=== PATIENT | male | born 1975 | race Caucasian/White ===

== ENCOUNTER 2018-01-28 20:11 | Emergency (ER) | payer OTHER ==
[~2018-01-28] VITALS: Ht 198.1 cm; Wt 133.5 kg
[~2018-01-28 20:11] MED LIST: HYDROXYZINE PAM50 MG PO; SUBOXONE 8 MG-1 EAC2 SL
[2018-01-28 23:15] LABS: CHLORIDE 103 mEq/L (99-109); POTASSIUM 3.9 mEq/L (3.7-5.4); SODIUM 140 mEq/L (136-147)
[2018-01-28 23:16] LABS: GLUCOSE 90 mg/dL (70-99)
[2018-01-28 23:17] LABS: HEMATOCRIT 48.7 % (38.0-50.0); HEMOGLOBIN 16.9 G/DL (12.5-16.6); MCH 32.1 PG (29.0-34.0); MCHC 34.7 G/DL (30.0-36.0); MCV 92.4 FL (86-99); PLATELET COUNT 266 K/uL (156-360); RBC DIS.WIDTH-CV 12.8 % (11.8-14.6); RBC DIS.WIDTH-SD 43.4 % (39-53); RED BLOOD COUNT 5.27 M/uL (4.00-5.50); WHITE BLOOD COUNT 15.1 K/uL (4.1-10.2)
[2018-01-28 23:20] LABS: CREATININE 1.4 mg/dL (0.6-1.3); GFR ESTIMATE (CALCULATED) > 59 mL/min/ (58.99-99999)
[2018-01-28 23:21] LABS: UREA NITROGEN (BUN) 20 mg/dL (9-23)
[2018-01-28] MEDS ORDERED: BACTRIM,SEPT1 TABLET PO (23:24)
[2018-01-28] MEDS ORDERED: KEFLEX500 MG PO (23:24)
[2018-01-28 23:46] VITALS: BP 120/80
== END 2018-01-28 23:48 | disposition home or self-care (01) ==
LOC: EME 20:11
PROVIDERS: Physician Assistant
DX: L03.113 Cellulitis of right upper limb (principal); S61.401A Unspecified open wound of right hand, initial encounter; F19.90 Other psychoactive substance use, unspecified, uncomplicated; X58.XXXA Exposure to other specified factors, initial encounter; F32.9 Major depressive disorder, single episode, unspecified; F17.200 Nicotine dependence, unspecified, uncomplicated
CPT/HCPCS: 73130; 80048; 85027; 99281; 99284

== ENCOUNTER 2018-02-19 12:26 | Emergency (ER) | payer OTHER ==
[~2018-02-19] VITALS: Ht 198.1 cm; Wt 133.4 kg
[~2018-02-19 12:26] MED LIST changes: +BACTRIM,SEPT1 TABLET PO; +KEFLEX500 MG PO
[2018-02-19] MEDS ORDERED: BACTRIM,SEPT1 TABLET PO (14:24)
[2018-02-19 15:00] VITALS: BP 121/88
== END 2018-02-19 14:40 | disposition home or self-care (01) ==
LOC: EME 12:26 → RME 12:26
DX: S61.431D Puncture wound without foreign body of right hand, subsequent encounter (principal); F32.9 Major depressive disorder, single episode, unspecified; F11.20 Opioid dependence, uncomplicated; F17.200 Nicotine dependence, unspecified, uncomplicated
CPT/HCPCS: 73130; 99281; 99283